=== PATIENT | female | born 1985 | race Caucasian/White ===

== ENCOUNTER 2017-03-29 12:42 | Inpatient (IN) | payer OTHER ==
[~2017-03-29] VITALS: Ht 167.6 cm; Wt 61.9 kg
[2017-03-29 12:49] VITALS: BP 125/83; PULSE 85; RESP 16; O2SAT 100
--- NOTE | 2017-03-29 15:38 | ED.REPORT ---
HPI-Headache Date of Service March 29, 2017 ED Provider: Dr. Hodgson 31 y/o female with no pertinent hx presents to the ED complaining of severe headache, onset 5 days ago which significantly worsened 2 days ago. The pt had been to [facility] in [place] 2 days ago. She was discharged as the blood work was unremarkable. She went back to [facility] this morning, where they discharged her due to an unremarkable MRI. There was no sign of stroke or masses or dural sinus thrombosis. She presented here immediately after being discharged from [facility]. The pt reports until today her headache was mostly on the left side but now it also hurts on the right side of her head. Associated sx include nausea, vomiting, and photophobia. She denies fever and chills. The pt reports she used to get tension headaches as a teenager but she has not had a migraine since. She takes magnesium supplements. Her HIGH PRESSURE OPERATOR shows no narcotics. Nursing Notes Stated Complaint: HEAD PAIN,VOMITING,CAN'T KEEP FOOD/LIQUID DOWN Chief Complaint: Headache Nursing Notes Reviewed: Yes Allergies: Coded Allergies: NSAIDS (Non-Steroidal Anti-Inflamma (Verified Allergy, Unknown, Stomach bleeding, 03/29/17) aspirin (Verified Allergy, Unknown, Stomach bleeding, 03/29/17) metoclopramide (Verified Allergy, Unknown, Nausea,Vomiting, 03/29/17) morphine (Verified Allergy, Unknown, Nausea,Vomiting, itching, hives, 03/29) ondansetron (Verified Allergy, Unknown, Hives, 03/29/17) prochlorperazine (Verified Allergy, Unknown, dystonic reaction, 03/29/17) General Time Seen by MD: 15:38 Chief Complaint Headache Hx Obtained From: Patient Arrived By: Walk-in Sudden in Onset?: No Onset Occurred: 5 days ago Symptom Duration: Since onset Location: : Generalized Quality: Painful Radiation: : Does not radiate Severity: Current: Moderate Severity: Maximum: Severe Recent Healthcare: Recent doctor visit Similar Sx Previous: Yes Past Medical History Past Medical History PTSD Past Surgical History none reported Smoking History Never Smoker Social History Alcohol Use: Denies alcohol use Drug Use: Denies drug use Ambulatory Status Independent Review of Systems Review of Systems Note: Recent travel to [place] as well as [place]. No travel to [place] and countries. Constitutional: Denies: Chills, Fever GI: Reports: Nausea, Vomiting Neurologic: Reports: Headache Complete sys rev & neg: except as marked. Physical Exam Initial Vital Signs Vital Signs (First) Date Time Temp Pulse Resp B/P Pulse Ox O2 Delivery O2 Flow Rate FiO2 03/29/17 12:49 37.3 85 16 125/83 100 Room Air Initial VS: Reviewed ENT: Mucous membranes moist, Conjunctiva normal (no injections pupils equal minimal photophobia), No scleral icterus Respiratory: Breath sounds normal, Clear to auscultation, No respiratory distress Cardiovascular: Regular rate & rhythm, Heart sounds normal, Intact distal pulses Abdomen / GI: Soft (minor tenderness left flank and with significant forward flexion in the lumbar area), No guarding, No rebound, No distention Lymphatic: No lymphadenopathy Extremities: Vascular intact, Neuro intact, No swelling, No tenderness Skin: Warm, Dry, No cyanosis Psychiatric: Mood/affect normal, Behavior normal, Normal thought content General/Constitutional: Awake (significant distress nauseated and retching holding her head from pain, remains cooperative) Cardiovascular: Heart rate NL, Regular rhythm, Heart sounds NL, Peripheral circulation NL Interpretation & Diagnostics Interpretation & Diagnostics: CSF studies pending including viral PCR Pt's labs at [facility] on 03/27/17 were unremarkable. Pt's MRI at [facility] on 03/29/17 was also unremarkable. Lab Results Interpretation Result Diagram: 03/29/17 1635 03/29/17 1655 Test 03/29/17 16:14 03/29/17 16:35 03/29/17 16:55 03/29/17 17:55 Hold Urine Received (Received) White Blood Count 3.6th/mm3 (3.8-10.1) Red Blood Count 5.20mil/mm3 (3.90-5.20) Hemoglobin 12.1g/dL (12.0-15.6) Hematocrit 38.2% (35.0-46.0) Mean Corpuscular Volume 73.5fL (81-100) Mean Corpuscular Hemoglobin 23.3pg (27.0-35.0) Mean Corpuscular Hemoglobin Concent 31.7% (32.0-37.0) Red Cell Distribution Width 17.8% (12.3-15.4) Platelet Count 251bil/L (150-400) Neutrophils (%) (Auto) 38.7% (40-74) Lymphocytes (%) (Auto) 50.4% (14-46) Monocytes (%) (Auto) 8.7% (4-12) Eosinophils (%) (Auto) 1.4% (0-5) Basophils (%) (Auto) 0.8% (0-3) Hold Purple Top Tube Received (Received) Sodium Level 138mEq/L (134-144) Potassium Level 3.9mEq/L (3.5-5.2) Chloride Level 102mEq/L (97-108) Carbon Dioxide Level 21mmol/L (18-29) Blood Urea Nitrogen 6mg/dL (6-20) Creatinine 0.67mg/dL (0.57-1.00) Estimat Glomerular Filtration Rate 146mL/min (>59) Glucose Level 79mg/dL (60-99) Calcium Level 8.9mg/dL (8.5-10.1) Magnesium Level 2.0mg/dL (1.6-2.6) Total Bilirubin 0.3mg/dL (0.0-1.2) Aspartate Amino Transf (AST/SGOT) 14U/L (0-50) Alanine Aminotransferase (ALT/SGPT) 6U/L (0-32) Alkaline Phosphatase 47U/L (25-150) Total Protein 7.4g/dL (6.4-8.4) Albumin 3.9g/dL (3.4-5.0) Lipase 39U/L (13-60) Hold Mckeon Top Tube Received (Received) Procedures Lumbar Puncture Time: 17:45 Procedure Performed by: ED physician Consent / Setup / Site Prep: Informed consent provided, Consent from patient , Time-out performed, Hand hygiene observed, Stand sterile technique, Patient left lateral Skin Preparation Agent: Betadine Local Anesthesia: Lidocaine 1% Inserted Needle at: L3 L4 Post-Procedure / Complications: Dressing applied, No complications, Tolerated procedure well, Patient stable Re-Eval/Medical Decision Med Decision/Clinical Course 1-year-old woman with mild headache for 2 days then awaking on Sunday (3 days ago) with severe headache that has persisted. She was seen initially at [facility] with normal lab work sent home after fluids and pain medication. Return to days later continued to complain of severe pain had an MRI this morning at [facility] that showed no acute findings including no dural sinus thrombosis. Presents to [facility] with continued complaints of head pain so severe she is having trouble walking. She does not typically have headaches. She has no history of narcotic use or abuse. Her HIGH PRESSURE OPERATOR is reviewed she has had no narcotic prescriptions. Physical exam reveals severe headache with minor both normal call and lumbar tenderness with manipulation of her head. Her white count is actually lower. Lumbar puncture was done revealing clear fluid. Sent for viral PCR as well as usual CSF studies currently pending at this point. Given the continued severe headache and otherwise healthy young woman suspects viral meningitis. With 3 ER visits now in less than 24 hours lot to admit her at this point for intractable headache and presumptive viral meningitis with CSF cultures pending. No evidence of bacterial meningitis or other infectious disease that would require isolation. Re-Evaluation/Progress #1: Time of Eval: 15:56 Re-Evaluation/Progress Note: Rechecked pt. Informed the pt a lumbar puncture will be done. Re-Evaluation/Progress #2: Time of Eval: 17:39 Re-Evaluation/Progress Note: Rechecked pt. Lumbar puncture performed. Pt states her pain level is about 7/10 and she prefers to stay in the hopital. Informed th pt the hospitalist will be contacted in case she needs to be admitted. Consultation : Consulted With: Gas Station Service Attendant Call Returned at: 18:25 Metal Mockup Maker: Agrees with eval, Agrees with plan, Accepts admit Note: Dr Wade Counseled Regarding: Diagnosis, Lab results Discharge & Departure Impression: Primary Impression: Viral meningitis Additional Impressions: Intractable headache Leukopenia Disposition: ADMITTED TO HOSPITAL Discharge Condition All VS Reviewed: Yes Referrals: NOPCP (PCP) Scribe Attestation Portions of this note were transcribed by Ericka Uriarte. I, , personally performed the history, physical exam and medical decision-making;I reviewed and confirmed the accuracy of the information in the transcribed note. Signed by Yahir Khan. 03/29/17 1801 Adali Hodgson MD March 29, 2017 15:38 Ericka Uriarte March 29, 2017 15:56
[2017-03-29] MEDS ORDERED: 0.9% Sodium Chloride 1,000 ML IV ONE (16:04)
[2017-03-29] MEDS ORDERED: HYDROmorphone 1 mg/mL Inj IVPUSH PRN (16:05)
[2017-03-29] MEDS ORDERED: HYDROmorphone 1 mg/mL Inj IVPUSH ONE (16:05)
[2017-03-29] MEDS ORDERED: Promethazine Inj 50 MG in 0.9% Sodium Chloride-Pha MIX 100 ML IV ONE (16:05)
[2017-03-29 16:44] LABS: BASOPHILS % (AUTO) 0.8 % (0-3); EOSINOPHILS % (AUTO) 1.4 % (0-5); MONOCYTES % (AUTO) 8.7 % (4-12); Mean Corpuscular Hemoglobin 23.3 pg (27.0-35.0); Mean Corpuscular Volume 73.5 fL (81-100); NEUTROPHILS % (AUTO) 38.7 % (40-74); Platelet Count 251 bil/L (150-400)
[2017-03-29] MEDS ORDERED: fentaNYL-PF 50 mCg/mL 2 mL Inj IVPUSH ONE (18:10)
[2017-03-29] MEDS: fentaNYL-PF 50 mCg/mL 2 mL Inj IVPUSH ONE ×2 (18:10→18:23)
[2017-03-29 18:33] VITALS: BP 118/80; PULSE 70; O2SAT 100
[2017-03-29 18:40] LABS: APPEARANCE,CSF CLEAR (CLEAR); COLOR,CSF COLORLESS (COLORLESS); WHITE BLOOD CELL,CSF 0 /mm3 (0-5)
[2017-03-29 18:41] LABS: APPEARANCE,CSF CLEAR (CLEAR); COLOR,CSF COLORLESS (COLORLESS); WHITE BLOOD CELL,CSF 0 /mm3 (0-5)
[2017-03-29] MEDS ORDERED: 0.9% Sodium Chloride 1,000 ML IV SCH (18:44)
[2017-03-29] MEDS ORDERED: Alum-Mag Hydrox-Simeth 30 mL Suspension PO PRN ×2 (18:45→20:15)
[2017-03-29] MEDS ORDERED: PROM25SU47 RECTAL (18:57)
[2017-03-29] MEDS ORDERED: AMPH30CA5 PO (18:57)
[2017-03-29] MEDS ORDERED: PANT40TA3 PO (18:57)
[2017-03-29] MEDS ORDERED: MAGN500C4 PO (18:57)
[2017-03-29] MEDS ORDERED: FAMO20TA4 PO (18:57)
[2017-03-29] MEDS ORDERED: ACET-171 PO (18:57)
[2017-03-29] MEDS ORDERED: KLO1T PO (18:57)
[2017-03-29] MEDS ORDERED: ZOLP5TAB6 PO (18:57)
[2017-03-29] MEDS ORDERED: Promethazine 25 mg Rectal Suppository RECTAL PRN (20:15)
[2017-03-29] MEDS ORDERED: Naloxone 0.4 mg/mL 10 mL Inj IVPUSH PRN (20:15)
[2017-03-29] MEDS ORDERED: Magnesium Sulfate 50% Inj 1 GM in Dextrose 5% 50 ML IV PRN (20:15)
[2017-03-29] MEDS ORDERED: Promethazine 50 mg/mL Inj IV PRN (20:20)
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
--- NOTE | 2017-03-29 20:29 | PCM.CONPHA ---
Subjective Date of Service: March 29, 2017 Requesting Provider: Srikanth Martell DO Reason for Pharmacy Consult: Anticoagulation Management Objective Vital Signs Date Time Temp Pulse Resp B/P Pulse Ox O2 Delivery O2 Flow Rate FiO2 03/29/17 18:33 70 118/80 100 03/29/17 12:49 37.3 85 16 125/83 100 Room Air Weight (Kilograms): 63.64 Height (Feet): 5 Height (Inches): 6 Test 03/29/17 16:14 03/29/17 16:35 03/29/17 16:55 03/29/17 17:55 Hold Urine Received (Received) White Blood Count 3.6th/mm3 (3.8-10.1) Red Blood Count 5.20mil/mm3 (3.90-5.20) Hemoglobin 12.1g/dL (12.0-15.6) Hematocrit 38.2% (35.0-46.0) Mean Corpuscular Volume 73.5fL (81-100) Mean Corpuscular Hemoglobin 23.3pg (27.0-35.0) Mean Corpuscular Hemoglobin Concent 31.7% (32.0-37.0) Red Cell Distribution Width 17.8% (12.3-15.4) Platelet Count 251bil/L (150-400) Neutrophils (%) (Auto) 38.7% (40-74) Lymphocytes (%) (Auto) 50.4% (14-46) Monocytes (%) (Auto) 8.7% (4-12) Eosinophils (%) (Auto) 1.4% (0-5) Basophils (%) (Auto) 0.8% (0-3) Hold Purple Top Tube Received (Received) Sodium Level 138mEq/L (134-144) Potassium Level 3.9mEq/L (3.5-5.2) Chloride Level 102mEq/L (97-108) Carbon Dioxide Level 21mmol/L (18-29) Blood Urea Nitrogen 6mg/dL (6-20) Creatinine 0.67mg/dL (0.57-1.00) Estimat Glomerular Filtration Rate 146mL/min (>59) Glucose Level 79mg/dL (60-99) Calcium Level 8.9mg/dL (8.5-10.1) Magnesium Level 2.0mg/dL (1.6-2.6) Total Bilirubin 0.3mg/dL (0.0-1.2) Aspartate Amino Transf (AST/SGOT) 14U/L (0-50) Alanine Aminotransferase (ALT/SGPT) 6U/L (0-32) Alkaline Phosphatase 47U/L (25-150) Total Protein 7.4g/dL (6.4-8.4) Albumin 3.9g/dL (3.4-5.0) Lipase 39U/L (13-60) Hold Mckeon Top Tube Received (Received) CSF Appearance Clear (CLEAR) CSF Color Colorless (COLORLESS) CSF WBC 0/mm3 (0-5) CSF RBC 0/mm3 CSF Mononuclear WBCs % CSF Polynuclear WBCs % CSF Other Cells CSF Glucose 50mg/dL (45-90) CSF Total Protein 19mg/dL (15-45) Assessment/Plan Assessment/Plan Lovenox per Rx Indication: DVT prophylactic SCR eCrCl >120 Dose 40mg daily, per protocol Carter Box PharmD March 29, 2017 20:29
[2017-03-29] MEDS: HYDROmorphone 1 mg/mL Inj IVPUSH PRN (20:45)
[2017-03-29] MEDS ORDERED: OXYC-407 PO (20:57)
[2017-03-29 21:16] VITALS: BP 118/80; PULSE 70; RESP 16; O2SAT 100
[2017-03-29 21:26] VITALS: BP 112/76; PULSE 64; RESP 16; O2SAT 100
[2017-03-29] MEDS: 0.9% Sodium Chloride 1,000 ML IV SCH (21:38)
[2017-03-29] MEDS: Promethazine Inj 25 MG in 0.9% Sodium Chloride 50 ML IV PRN (21:54)
[2017-03-30] MEDS ORDERED: fentaNYL-PF 50 mCg/mL 2 mL Inj IVPUSH ONE (00:10)
[2017-03-30] MEDS: Sodium Chloride LOK Flush 10 mL Syringe IVFLUSH SCH ×3 (00:14→16:30)
--- NOTE | 2017-03-30 01:50 | NUR ---
Admission Pt arrived to room 3031 alert and oriented but drowsy, c/o 10/10 head ache. Pt was oriented to room, call light, bed and policies. ED RN informed me that Pt had just received a dose of fentanyl prior to departing the the ED. She also informed this RN that the emergency physician had ordered another dose for Pt if she needed it later after arriving to floor. Pt also c/o nausea and vomiting. Pt was given IF phenergan for nausea with no reliefe of symptoms. Pt drowsy and falling asleep during initial assessment and admission questions. Pt placed on continuous pulse oximetry monitor for safety and is currently at this time holding a SpO2 of 100% on RA. Pt is currently asleep.
[2017-03-30 06:27] LABS: BASOPHILS % (AUTO) 0.3 % (0-3); EOSINOPHILS % (AUTO) 0 % (0-5); MONOCYTES % (AUTO) 2.6 % (4-12); Mean Corpuscular Hemoglobin 23.4 pg (27.0-35.0); Mean Corpuscular Volume 74.7 fL (81-100); NEUTROPHILS % (AUTO) 78.2 % (40-74); Platelet Count 234 bil/L (150-400)
[2017-03-30 06:34] VITALS: BP 114/72; PULSE 75; RESP 16; O2SAT 97
[2017-03-30] MEDS: HYDROmorphone 1 mg/mL Inj IVPUSH PRN ×2 (06:37→12:53)
[2017-03-30] MEDS: 0.9% Sodium Chloride 1,000 ML IV SCH ×2 (06:45→16:11)
[2017-03-30 06:54] LABS: Magnesium 1.8 mg/dL (1.6-2.6); Phosphorus 2.7 mg/dL (2.5-4.9)
[2017-03-30] MEDS: Promethazine Inj 25 MG in 0.9% Sodium Chloride 50 ML IV PRN (07:57)
--- NOTE | 2017-03-30 08:52 | NUR ---
Social Work: Screening Data: Pt is a 31 y/o female admitted for viral meningitis. Pt's PCP is not listed, pt's insurance is [employer]. EMR reviewed. No d/c planning needs anticipated at this time. PROFESSOR OF GENETICS will continue to follow if needs arise. Assessment: Pt who is independent at baseline. Plan: Pt will d/c home when medically stable. No d/c planning needs anticipated at this time. PROFESSOR OF GENETICS will continue to follow if needs arise. KATIE Stephens
[2017-03-30] MEDS: Polyethylene Glycol (PEG) 17 Gm Powder PO PRN (09:24)
[2017-03-30 13:23] VITALS: BP 109/63; PULSE 86; RESP 16; O2SAT 95
[2017-03-30] MEDS: PROMETHAZINE IV PRN (13:39)
[2017-03-30] MEDS: SODIUM CHLORIDE 0.9% IV PRN (13:39)
[2017-03-30] MEDS: Amphetamines (Mixed) 10 mg Tablet PO SCH (13:41)
[2017-03-30 14:56] VITALS: O2SAT 99
[2017-03-30] MEDS ORDERED: Dexamethasone Inj 10 MG in 0.9% Sodium Chloride-Pha MIX 50 ML IV ONE (15:30)
[2017-03-30] MEDS: Pantoprazole 40 mg ER24 Tablet PO SCH (15:34)
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
--- NOTE | 2017-03-30 16:10 | NUR ---
Pain and behaviors Continues to request Fentanyl or increased dose of Dilaudid IV. Informed patient that MD is choosing not to agree with those orders. Continues to have 10/10 SIEGEL. Patient found to be sleeping majority of shift. Attempted to educate patient in regards to pain scale. Patient now states that after dose of IV Dilaudid is 8/10. C/o of nausea yet no emesis. States she can only lay flat on her back. Elevation increases pain. Continue frequent rounding.
[2017-03-30 19:55] VITALS: BP 117/75; PULSE 78; RESP 16; O2SAT 97
--- NOTE | 2017-03-30 20:07 | NUR ---
Pain/Nausea/Emesis Pt found crying, lying flat in her bed with an ice dexter on her head. She states repeatedly, "The nurse didn't come with my pain medicine at six fifteen tonight." The pt has a headache that "hurts all over". She then states, "my IV hurts". Her IV has infiltrated. The pt then cries harder because she won't be able to have her IV medicine immediately. She refuses PO dilaudid. She has a small amt of emesis in her basin. When I returned with the bandaid she had a large amt of non digested food in her basin. IV therapy called. Given new ice dexter. Pt assured that her IV medications would be administered as soon as a new IV is placed. Pt appears calmer.
--- NOTE | 2017-03-30 21:38 | NUR ---
Emesis x 2 Pt has two more emesis of undigested food and dark brown fluid. Pt states, "I'm throwing up blood." I told her that a test could be done to decipher if this was blood or not, but that the MD would have to order this test. The pt refuses sublingual or rectal options of possible anti emetic medication. I explained to the pt that a second nurse has been notified to possibly place a peripheral IV> The pt requests a central line. I told her this was not possible at this time. The verbalized understanding.
[2017-03-31 00:04] VITALS: BP 118/77; PULSE 90; RESP 20; O2SAT 96
--- NOTE | 2017-03-31 00:06 | NUR ---
Pain/IV Pt states her SIEGEL has remained a 10. She requests a fentanyl pain "patch". She states the IV fentanyl "worked". VS stable. Pt refuses to sit up. She states her SIEGEL goes to a 20. (She was able to walk to the bathroom earlier this evening at 2100) Notified MD of this request. MD to keep patient on current pain regimen. IV nurse, Aj, to attempt pt's PIV soon. Pt updated on care plan.
[2017-03-31] MEDS: 0.9% Sodium Chloride 1,000 ML IV SCH ×3 (00:58→23:02)
[2017-03-31] MEDS: PROMETHAZINE IV PRN ×2 (00:58→05:36)
[2017-03-31] MEDS: Sodium Chloride LOK Flush 10 mL Syringe IVFLUSH SCH ×4 (00:58→23:03)
[2017-03-31] MEDS: SODIUM CHLORIDE 0.9% IV PRN ×2 (00:58→05:36)
[2017-03-31] MEDS: HYDROmorphone 1 mg/mL Inj IVPUSH PRN ×6 (00:58→22:01)
--- NOTE | 2017-03-31 03:57 | NUR ---
Activity Pt insists that she will be "OK" on her own back and forth to to bathroom. I explained that it is the nurse's responsibility to ensure safety when pt's are up OOB especially when I have not seen her sit up on her own. The pt then got up OOB independently and then crept to the bathroom keeping her head at the same level as her waist in order to prevent pain. She insisted I shut the door for privacy. The pt requested normal saline for her contacts and then stated she'd be "fine" getting back to bed on her own without help. This RN remains at the bedside awaiting the pt to return from the bathroom.
--- NOTE | 2017-03-31 04:02 | NUR ---
Pain medicine The pt wants her pain medicine switched. "If I take the dilaudid without the benadryl my throat may close off" I then told her to wait till 0700 when the benadryl is due so that she may have the two medications together. The pt replied "That will prolong my suffering". I responded that if she was going to have a panic attack if dilaudid was given without benadryl then it wasn't worth taking the medication. The pt disagreed. She is very focused that the dilaudid gave her "hives" and keeps referring to the photo images she has of the hives. She had no such reaction when I administered the dilaudid with the benadryl at 0100.
[2017-03-31 05:33] VITALS: BP 110/68; PULSE 73; RESP 20; O2SAT 97
--- NOTE | 2017-03-31 07:13 | NUR ---
Diet Pt ate two pieces of toast. She kept this down. She is requesting breakfast. I encouraged her to keep snacking.
[2017-03-31] MEDS: Pantoprazole 40 mg ER24 Tablet PO SCH (07:55)
[2017-03-31] MEDS: Amphetamines (Mixed) 10 mg Tablet PO SCH ×2 (08:30→15:00)
[2017-03-31 09:04] VITALS: BP 122/81; PULSE 67; RESP 18; O2SAT 96
--- NOTE | 2017-03-31 10:26 | NUR ---
Pain Pt requested pain medication. C/o SIEGEL. Confirmed with MD to continue use of IV Dilaudid. Approached patient's room with IV medication to give patient and patient found to be in deep sleep AEB light snoring, mouth open, eyes closed, etc.... As RN attempted to quietly exit room patient woke up and requested pain med stating that she was in "excruciating and crippling pain". IV Dilaudid given. Educated patient on uses of IV Tylenol and effectiveness with SIEGEL's. Patient states that she will "think about it". Addendum: 03/31/17 at 1031 by TONY SPENCER RN No emesis this far in shift. Patient did eat her breakfast.
--- NOTE | 2017-03-31 10:32 | NUR ---
Refusal of meds Patient refused Adderall and magnesium. Did accept her Protonix and and Pepcid.
[2017-03-31] MEDS: Acetaminophen IV 1,000 MG in IV Premix 1 EACH IV PRN ×2 (11:36→22:01)
--- NOTE | 2017-03-31 14:26 | NUR ---
Social Work: Continued d/c planning Data: DISBURSEMENT CLERK requested LIZZY report from LIZZY [facility]IL[facility]. Pt has visited 12 Emergency Departments along the [facility] since September of 2016. DISBURSEMENT CLERK gave this information to KATIE Ruiz
[2017-03-31 14:32] VITALS: BP 129/77; PULSE 61; RESP 18; O2SAT 90
--- NOTE | 2017-03-31 15:43 | NUR ---
Pain/Nausea Continues to c/o SIEGEL which pain describes between 7-9 on pain scale. Patient states SIEGEL of 7/10 on pain scale and this RN gave Dilaudid 1mg IV. After reassessment pt states pain is now 9/10 yet she continues to sit up in bed at 30 degrees and eating lunch. Continues to request nausea meds yet ate breakfast, lunch and snacks. No report of emesis or c/o nausea. Patient just states "i want phenergan" without any report of nausea. Offered PO and IV magnesium and patient declined.
--- NOTE | 2017-03-31 16:10 | NUR ---
[facility] prescription monitoring information provided to Dr Montes.
--- NOTE | 2017-03-31 16:53 | NUR ---
Pt Rounds hourly shift manager in room during physician rounds this afternoon. Throughout rounds, pt appeared comfortable, speaking in a calm voice, smiling, asking questions, no obvious distress noted. Pt reported having increased levels of pain whenever raising her head; however, was able to lift head and upper body to retrieve items from her purse without any objective or verbal s/s pain. Also note pt was able to sit upright while showering today w/o reporting increased pain. Plan and medications discussed in detail w/ physician multiple times. Pt verbalizes understanding of plan.
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
[2017-03-31] MEDS: Polyethylene Glycol (PEG) 17 Gm Powder PO PRN (20:03)
[2017-03-31 21:27] VITALS: BP 138/84; PULSE 71; RESP 16; O2SAT 100
[2017-04-01] MEDS: HYDROmorphone 1 mg/mL Inj IVPUSH PRN ×3 (01:59→12:51)
[2017-04-01 05:35] VITALS: BP 113/63; PULSE 68; RESP 16; O2SAT 98
--- NOTE | 2017-04-01 06:00 | NUR ---
Pain/Nausea Pt reporting headache and back pain 10/10, also stating nausea. Pt laying flat in bed, stating she can not sit up or the pain increases to 20. Medicated pt with 1 mg IV dilaudid, IV tylenol and PO phenergan. Pt's dinner at bedside, pt stating still wanting to eat. Pt stating pain decreased to 7/10 after medication admin, talking to her brother on the phone. No vomiting this shift. Medicated pt at 0200 for headache and back pain 10/10, medicated with benadryl at this time as well. Pt came out of room about an hour later, had disconnected herself from her IV. Pt was unsteady on her feet, stating she spilled her water on herself. Cleaned pt up, got her a new gown, pt then laid down in bed with eyes closed. No further c/o nausea or pain this shift, call light within reach, bed alarm for safety.
[2017-04-01] MEDS: Pantoprazole 40 mg ER24 Tablet PO SCH (08:10)
[2017-04-01] MEDS: 0.9% Sodium Chloride 1,000 ML IV SCH ×2 (08:11→12:29)
[2017-04-01] MEDS: Sodium Chloride LOK Flush 10 mL Syringe IVFLUSH SCH ×3 (08:21→21:38)
[2017-04-01] MEDS: Acetaminophen IV 1,000 MG in IV Premix 1 EACH IV PRN (10:01)
[2017-04-01] MEDS: Amphetamines (Mixed) 10 mg Tablet PO SCH (10:02)
[2017-04-01 13:45] VITALS: BP 144/97; PULSE 65; RESP 16; O2SAT 97
--- NOTE | 2017-04-01 14:27 | NUR ---
OFF UNIT Patient off to radiology at 1420 via bed. Addendum: 04/01/17 at 1524 by ANJELICA ALFARO RN Pt back on unit, IVF restarted
--- NOTE | 2017-04-01 14:30 | NUR ---
PAIN/NAUSEA Physician spoke with patient about transitioning from IV to PO pain medications. Offered PO pain medication x2 reinforcing physician's plan. Patient continued to request IV pain medication stating PO hasn't worked and she's not ready to transition, she continues to state she will try PO pain medications on the next scheduled dose. Will continue to emphasize the need to transition to PO medications. Patient also requesting bed be unplugged because mattress inflating causes increased pain. Primary RN spoke to charge nurse regarding this request and allowed bed to be unplugged. Patient gets up to bathroom walking with forward antalgic gait. She continues to use ice pack and heat pack to help alleviate pain. Will continue to monitor. Addendum: 04/01/17 at 1524 by ANJELICA ALFARO RN This RN agrees with above
--- NOTE | 2017-04-01 16:15 | DRSVH ---
PROCEDURE: MRI STROKE PROTOCOL ([id number]) Pre- and post-contrast brain MRI, non-contrast brain MR angiogram, pre- and postcontrast neck MR emmanuel ogram INDICATIONS: severe head ache TECHNIQUE: Brain: Noncontrast axial T1 spin echo, axial T2 fast spin echo, sagittal and axial FLAIR, coronal T2 fast spin echo, axial gradient echo, axial diffusion and ADC through the brain. After the administr ation of contrast, axial 3D VIBE of the cranial vasculature and brain. Brain MRA: Non-contrast 3-D time of flight MR angiogram, with multiple axxljou-qgakwhykt-forrtintjv (MIP) reformats performed. Neck MRA: Axial and sagittal TruFISP through the neck. Coronal dynamic MR angiogram during administ ration of contrast in the arterial and venous phases, with 3-dimenstional empilhd-vwbsndpyp-zceptaark n (MIP) reformats constructed from subtraction images. COMPARISON: None. FINDINGS: Image quality: Excellent. BRAIN: CSF spaces: Ventricles are normal in size and shape. Basal cisterns are patent. No extra-axial flu id collections. Brain: No intracranial bleeds or mass effects. Dejesus-white matter interface is normal. Diffusion we ighted images show no acute ischemic insults. Brainstem appears normal. Normal intravascular flow v oids are present. No abnormal intracranial enhancement. Skull and face: Calvarial marrow signal is normal. Orbits appear normal. Sinuses: There is a fluid collections in mucosal thickening of the right maxillary sinus. The mastoid s are clear. BRAIN MR ANGIOGRAM: Anterior circulation: Intracranial internal carotid arteries are normal in size and enhancement. Th e flow within the paired anterior cerebral arteries is normal and symmetric. The flow within the mid dle cerebral arteries is normal and symmetric. The anterior communicating artery is seen. No stenos es, occlusions, or aneurysms. Posterior circulation: The visualized portions of the vertebral arteries demonstrate normal caliber, and join to form a normal appearing basilar artery. The flow within the posterior cerebral arteries is normal and symmetric. No stenoses, occlusions, or aneurysms. NECK MR ANGIOGRAM: Carotids: There is a common trunk for the left common carotid artery and the innominate artery. Grea t vessels demonstrate a caliber as they arise from the aortic arch. The origins of the common caroti d arteries appear patent. The calibers and courses of both common carotid arteries are normal. The bifurcation regions appear normal bilaterally. The internal carotid arteries demonstrate normal cour se and caliber. Posterior circulation: The origins of the vertebral arteries appear patent. More superior portions of both vertebral arteries demonstrate normal course and caliber, and join to form a normal appearing basilar artery. Miscellaneous: Subclavian arteries appear patent. Pre-contrast images through the neck show no soft tissue abnormalities. There is a small left pleural effusion. IMPRESSION: BRAIN MRI: 1. No acute intracranial abnormalities. 2. Maxillary sinusitis. BRAIN MR ANGIOGRAM: Normal anterior and posterior circulations. NECK MR ANGIOGRAM: 1. Normal cervical carotid arteries and vertebral arteries bilaterally. 2. Small left pleural effusion. The estimate of stenosis included in the report of the imaging study was calculated using the NASCET method Dictated by: Camilla Zapata M.D. on 04/01/2017 at 16:05 Approved by: Camilla Zapata M.D. on 04/01/2017 at 16:14
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
[2017-04-01] MEDS ORDERED: HYDROmorphone 1 mg/mL Inj IVPUSH PRN (17:10)
[2017-04-01] MEDS ORDERED: HYDROmorphone 1 mg/mL Inj IVPUSH ONE (17:15)
--- NOTE | 2017-04-01 18:32 | NUR ---
Pain Upon return to floor from MRI, pt reporting "severe, debilitating pain". This was communicated to this RN with a flat, monotone affect. Pt states she is unable to elevate head "for any reason" so has remained flat for entirety of shift with exception of BR use at which time she will amb, bent at the waist. Pt has been picking at meals throughout this shift, c/o a vague nausea. No retching or gagging noted. Pt appears to attempt to keep staff in room, requesting pillow/ice pack adjustment, information about LP, information about blood patch, asking numerous times re: timing of medications, wanting to discuss recent trip to [place] and often calling for staff when door has shut. All needs met. Bed in lowest, locked position, call light in reach.
[2017-04-01 21:09] VITALS: BP 111/65; PULSE 69; RESP 18; O2SAT 97
[2017-04-01] MEDS: Amoxicillin-Clav 875-125 mg Tablet PO SCH (21:37)
[2017-04-02] MEDS: 0.9% Sodium Chloride 1,000 ML IV SCH ×3 (02:55→14:11)
[2017-04-02 05:24] VITALS: BP 105/68; PULSE 64; RESP 16; O2SAT 97
--- NOTE | 2017-04-02 06:08 | NUR ---
Pain: Pt c/o SIEGEL 07/29, medication administered; effective, allowing pt to sleep, appeared comfortable. No c/o nausea or diarrhea. Pt slept most of the night, pleasant and cooperative with care.
[2017-04-02] MEDS: Sodium Chloride LOK Flush 10 mL Syringe IVFLUSH SCH ×2 (08:30→16:33)
[2017-04-02] MEDS: Pantoprazole 40 mg ER24 Tablet PO SCH (10:09)
[2017-04-02] MEDS: Amoxicillin-Clav 875-125 mg Tablet PO SCH ×2 (10:10→21:37)
[2017-04-02] MEDS: Amphetamines (Mixed) 10 mg Tablet PO SCH (10:15)
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
[2017-04-02 14:11] VITALS: BP 145/100; PULSE 68; RESP 16; O2SAT 99
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
--- NOTE | 2017-04-02 18:30 | NUR ---
Pain Patient reporting pain 9-10/10 this morning and early afternoon. Mom visiting late afternoon, at which time, patient reporting pain 8/10, pain medications given, mom left, pain reassessment patient texting on phone, in the dark, reported pain 9-10/10.
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
[2017-04-02 20:43] VITALS: BP 129/87; PULSE 70; RESP 16; O2SAT 100
[2017-04-02] MEDS ORDERED: Sodium Chloride NAS 45 mL Spray NASAL PRN (22:05)
[2017-04-02] MEDS ORDERED: Fluticasone 0.05% 15 Spray/2 Gm 16 Gm Nasal Spray NASAL PRN (22:05)
[2017-04-03] MEDS: Sodium Chloride LOK Flush 10 mL Syringe IVFLUSH SCH ×3 (00:18→17:20)
[2017-04-03] MEDS: Polyethylene Glycol (PEG) 17 Gm Powder PO PRN ×2 (00:19→08:47)
--- NOTE | 2017-04-03 00:32 | CONS ---
[address] [address] CONSULTATION REPORT PATIENT: MAYRA CORRAL : 1985 MR#: [id number] ADMIT: 03/29/2017 JOB ID: [id number] DATE OF SERVICE: BRIEF HISTORY OF PRESENT ILLNESS: The patient is a 31-year-old female who was recently admitted for headaches and concern for meningitis. On March 29, she underwent a lumbar puncture to rule out meningitis as part of the workup. She was noted to have a change in her quality of headaches. She has a complicated past medical history which was nicely outlined in Dr. Rocha's note. Please refer to her excellent note for further details and background of her clinical picture. I was asked to evaluate the patient for possible postdural puncture headache status post lumbar puncture. I would like preface this note with the fact that our conversation was very pleasant and I found the patient to be highly intelligent. The details regarding her symptoms and recent turn of events were a bit elusive and hard to clarify. She does, however, seem genuinely distraught and hopeless with regard to her headaches. I spent nearly an hour in consultation with her. Regarding her quality of headache, the clinical picture and timeline are consistent with a postdural puncture headache. The headache does get worse when sitting and better when she is lying flat although does not get less than 4/10. She has had nausea and vomiting in the two days following the procedure. She noted the symptoms started a couple hours after the lumbar puncture, in which her headache went from unilateral to bilateral and included back pain as well. She notes that her symptoms have not improved with conservative therapy, including caffeine and adequate hydration. My concerns related to her history and symptoms include the fact that she has not had any improvement in four days despite lying flat and she notes that her headache is persistent in the 4-6 range even while supine. Her record also shows multiple emergency department visits for subjective pains such as headaches and abdominal pain. She has had recent trauma, PTSD and significant social stressors, and history of headaches in the past of differing etiology. She has had an LP in the past as well. Another troubling concern is that she has back pain with any movement but including rotational movement which is new and related to her headache according to her. This also includes occasional sciatica with flexion. Inspection of her back shows no signs of distention or hematoma and it is nontender to palpation. In fact, her physical exam of the lower extremities was grossly intact and normal. There are several inconsistencies in the details of her symptoms, but also in recent events unrelated to her headaches, which I find unusual. She has had pain medicine seeking behaviors with her current admission, which can certainly be a sign of inadequate pain control, but it is suspicious to have such severe pain as it relates to a postdural puncture headache while lying flat. The onset and change of headache occurred earlier than usual presentation of a PDPH. She also was insistent that according to the [facility] web site that back pain is a component of postdural puncture headaches, which has not been my experience and struck me as unusual. We discussed the risks and benefits of a blood patch. We discussed the natural progression and resolution of a PDPH if she does in fact have one, can take several days to weeks. My suspicion is that while she could have a postdural puncture headache given the recent lumbar puncture, I think is unlikely given all the other components of her history and symptoms. She also requested sedation for the procedure as she is afraid that she may not tolerate the pain, which leads me to believe the risks of the procedure are not insignificant for her, especially given that I am uncertain of her diagnosis. I could not answer her question on why her back hurts as much as it does, and a blood patch may worsen her back pain. Given that I was unable to speak to her until 9 p.m. any intervention at this hour would not provide any additional relief since she will be supine overnight. I will, however, talk to the anesthesiologist mid level practitioner tomorrow to assess her in the daytime hours for a second opinion. At this point, I recommended another day of conservative therapy for the natural progression and self resolution of a postdural puncture headache and clarification of her clinical picture. HARPREET
[2017-04-03 05:49] VITALS: BP 119/79; PULSE 67; RESP 16; O2SAT 98
--- NOTE | 2017-04-03 05:52 | NUR ---
pain Pt was tearful about her pain medication regimen tonight. Oxycodone given with Tramadol for breakthrough pain. Pt is able to sleep intermittently; sometimes unable to hold attention when RN in the room but asks for pain, nausea med, or benadryl as soon as she wakes up. Pt slept in the couch bed to help with her back pain. hourly rounding done.
[2017-04-03] MEDS: Pantoprazole 40 mg ER24 Tablet PO SCH (08:44)
[2017-04-03] MEDS: Amoxicillin-Clav 875-125 mg Tablet PO SCH ×2 (10:18→20:23)
[2017-04-03] MEDS: Amphetamines (Mixed) 10 mg Tablet PO SCH (10:18)
[2017-04-03] MEDS ORDERED: VALPROATE SODIUM IV ONE (16:35)
[2017-04-03] MEDS ORDERED: DEXTROSE 5% IV ONE (16:35)
[2017-04-03 17:26] VITALS: BP 131/84; PULSE 81; RESP 18; O2SAT 100
--- NOTE | 2017-04-03 19:00 | NUR ---
Ambulation Ambulated into hallway in crouched posture to pass off urine specimen. This RN accepted urine cup and called primary RN to place label and send to lab.
--- NOTE | 2017-04-03 19:51 | NUR ---
Behavior Pt cooperative with care but unable to maintain consistent pain control. Given PO Oxycodone for pain ranging from 6-10/10 pain in the head and 6-8/10 pain on back. Pt made requests for Blood patch and commented about wanting treatment elsewhere if she does not get what she wants. Pt also requested to keep IV fluids and MD informed. Pt does research on her phone about conditions and treatment options and sometimes changes her symptoms from previously such as headache when upright to lying down.
[2017-04-03 20:31] VITALS: BP 119/85; PULSE 78; RESP 18; O2SAT 99
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
--- NOTE | 2017-04-04 04:53 | NUR ---
PAIN/BEHAVIOR Patient presents with flat affect, depressed and anxious mood. Makes multiple requests for getting her medications changed to IV. Tearful and quite upset tonight that Dr. Hopson did not come see her. She called her office after hours and requested the answering service to call her. Answering service called here to inform us that she was doing this. Patient educated on use of after hours phone to MD, that it is for emergencies only and considering she is already in the hospital, it was not an emergency. She also was upset that anaesthesia did not visit. She feels sure she needs the blood patch and relates what she has read on the internet, stating that she has every symptom that would indicate she needs this and feels nervous that she will have a seizure. She received a valproic acid infusion this last evening and reminded that this will both help prevent seizure and possibly resolve the headache. Patient requests her oxycodone and phenergan. Asked to have her phenergan changed to IV, reminded that we are trying to move to PO. After she took the PO phenergan she had a small emesis of undigested food. Patient reminded that the phenergan had enough time to dissolve and that we would need to wait some time before doing IV phenergan. She stated that her "veins will close up within minutes of being off fluids," then requested that staff come in to flush her IV every 15-30 minutes. Patient informed that was not our policy and that we would monitor IV as necessary. Patient was finally able to sleep after given dose of ambien. Addendum: 04/04/17 at 0648 by JOVANY CONTRERAS RN Patient had more emesis, IV dose of phenergan given in place of PO. Continues to c/o headache. Patient did sleep most of the night as she was observed from inside the room.
[2017-04-04] MEDS: SODIUM CHLORIDE 0.9% IV PRN ×2 (06:40→22:29)
[2017-04-04] MEDS: PROMETHAZINE IV PRN ×2 (06:40→22:29)
[2017-04-04] MEDS: Sodium Chloride LOK Flush 10 mL Syringe IVFLUSH SCH ×3 (06:41→16:10)
[2017-04-04] MEDS: Pantoprazole 40 mg ER24 Tablet PO SCH (09:10)
[2017-04-04] MEDS: Amphetamines (Mixed) 10 mg Tablet PO SCH (09:11)
[2017-04-04] MEDS: Amoxicillin-Clav 875-125 mg Tablet PO SCH ×2 (09:11→20:30)
--- NOTE | 2017-04-04 15:45 | NUR ---
Evaluation completed. Please go to "Notes" then click on "Assessments and Notes" (bottom left corner of screen). Then select appropriate discipline tab on top of screen.
[2017-04-04 16:07] VITALS: BP 124/88; PULSE 101; RESP 18; O2SAT 100
--- NOTE | 2017-04-04 16:10 | NUR ---
Social Work: Brief Note Pt expressed care concerns. OUTBOUND TELEMARKETER notified Risk Management Patient Advocate. Pt stated that she is concerned about her treatment at this hospital and that the neurologist showed up once and stated they would again, but that she has not seen them again. She is upset that PT worked with her and "pushed me past the point of pain threshold that I am comfortable with to the point of tears and throwing up". Pt also expressed that she want to transfer to [facility] and is wanting to transport in a private ambulance. OUTBOUND TELEMARKETER notified MD of pt's desire. KATIE Stephens
--- NOTE | 2017-04-04 18:19 | NUR ---
Pain/Meds/Behavior Pain continues and reported in back, neck or head as well as "I'm not really feeling the wave of relief, when it kicks in, how long does it take to be absorbed. Also asking questions about what day and time IV dilauded was switched to PO and then switched to oxycodone, ect. Other questions and statements continue to be repeated and circling.
[2017-04-04 20:27] VITALS: BP 123/80; PULSE 78; RESP 18; O2SAT 99
[2017-04-04] MEDS ORDERED: DEXTROSE 5% IV ONE (21:10)
[2017-04-04] MEDS ORDERED: VALPROATE SODIUM IV ONE (21:10)
[2017-04-04] MEDS: Lidocaine Topical 5% Patch TOPICAL SCH (22:14)
[2017-04-04] MEDS ORDERED: 0.9% Sodium Chloride 250 ML ONE (22:24)
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
[2017-04-05] MEDS: Sodium Chloride LOK Flush 10 mL Syringe IVFLUSH SCH ×3 (00:12→16:40)
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
--- NOTE | 2017-04-05 03:24 | NUR ---
Pain/N/V Pt reporting pain 8/10 to head and back. Medicated pt with PO oxycodone. About an hour later pt vomited 200mL undigested food. Medicated pt with IV phenergan and placed lidocaine patch on pt's lower back. When in pt's bathroom to dump out emesis and urine, pt stating has not urinated in 2 days. Documentation showing pt has been voiding. Pt stating IV phenergan effective for nausea, then asked pt if she would like her PO antibiotic and tramadol and pt stating no, she was "so nauseous." Pt also stating the light from the window was hurting her eyes, closed the blinds per pt's request. Observed pt in room looking at phone in the dark. Will continue to assess pt for pain and nausea, call light within reach, frequent rounding.
[2017-04-05 06:29] VITALS: BP 102/67; PULSE 74; RESP 18; O2SAT 98
[2017-04-05] MEDS: Amoxicillin-Clav 875-125 mg Tablet PO SCH ×2 (08:12→20:30)
[2017-04-05] MEDS: Amphetamines (Mixed) 10 mg Tablet PO SCH (08:13)
[2017-04-05] MEDS: Pantoprazole 40 mg ER24 Tablet PO SCH (08:14)
--- NOTE | 2017-04-05 13:59 | NUR ---
Social Work: Continued d/c planning Data: Per Psych note: "The patient would likely benefit from referral to psychiatrist in the [facility] and should speak with CREAM SEPARATOR OPERATOR before discharge regarding referral. Patients with similar symptoms typically require extensive, consistent psychotherapy to improve condition." CREAM SEPARATOR OPERATOR will follow up with pt regarding interested and resources about MH resources is [facility]. Assessment: Pt who is independent at baseline. Plan: Pt will d/c home via POV when medically stable. CREAM SEPARATOR OPERATOR will follow up with pt regarding interested and resources about MH resources is [facility]. KATIE Stephens
--- NOTE | 2017-04-05 14:23 | NUR ---
Off unit CT Pt off unit via transporters on stretcher for neck CT. Addendum: 04/05/17 at 1622 by JAYA MAHONEY RN Pt now back, had MRI done as well. C/o pain, will medicate.
--- NOTE | 2017-04-05 15:32 | DRSVH ---
PROCEDURE: MRA ANGIOGRAM HEAD WITHOUT CONTRAST ([id number]) INDICATIONS: r/o venous sinus thrombosis TECHNIQUE: Sagittal T1 spin echo through the brain. Coronal 2D [id number] MR venogram, with 3-dimensional m dgopmw-qlmpzisnd-pnqqbkoqyz (MIP) reformats of the intracranial veins then performed. COMPARISON: [facility], , MR STROKE PROTOCOL, 04/01/2017, 14:22. FINDINGS: Image quality: Excellent. Veins: Sagittal, straight, transverse, and sigmoid sinuses all appear patent. Brain: Limited images through the brain parenchyma show no intracranial bleeds or mass effects. IMPRESSION: No evidence of cerebral venous thrombosis. Dictated by: Rand Gonsalez M.D. on 04/05/2017 at 15:30 Approved by: Rand Gonsalez M.D. on 04/05/2017 at 15:30
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
[2017-04-05 16:10] VITALS: BP 107/75; PULSE 101; RESP 16; O2SAT 98
--- NOTE | 2017-04-05 16:37 | DRSVH ---
PROCEDURE: MRI CERVICAL SPINE WITH AND WITHOUT CONTRAST ([id number]) INDICATIONS: r/o inflammation, infection , thrombosis TECHNIQUE: Noncontrast sagittal T1 spin echo and T2 fast spin echo, sagittal STIR, foraminal oblique sagittal T2 fast spin echo, axial gradient echo or T2 fast spin echo through the cervical spine. After the admi nistration of contrast, axial and sagittal T1 spin echo with fat saturation through the cervical spin e. COMPARISON: None. FINDINGS: Image quality: Excellent. Alignment and curvature: There is normal bony alignment. Marrow: Marrow is normal in overall signal, without suspicious enhancement. There is mild cervical diffuse disc desiccation without definite height loss. Spinal cord: Visualized spinal cord has normal size and signal. No cerebellar tonsillar herniation. No abnormal intramedullary enhancement. Paraspinous soft tissues: No paravertebral masses or suspicious enhancement. C2-3: Normal appearance. C3-4: Normal appearance. C4-5: Normal appearance. C5-6: Normal appearance. C6-7: Normal appearance. C7-T1: Normal appearance. IMPRESSION: No abnormal enhancement or cord signal change. No canal or foraminal stenosis. Dictated by: Tirso Maddox M.D. on 04/05/2017 at 16:33 Approved by: Tirso Maddox M.D. on 04/05/2017 at 16:36
--- NOTE | 2017-04-05 16:39 | DRSVH ---
PROCEDURE: MRI THORACIC SPINE WITH AND WITHOUT CONTRAST ([id number]) INDICATIONS: r/o inflammation, infection, thrombosis TECHNIQUE: Noncontrast sagittal T1 spin echo and T2 fast spin echo, sagittal STIR, axial T1 and T2 fast spin ech o through the thoracic spine. After the administration of contrast, axial and sagittal T1 spin echo with fat saturation through the thoracic spine. COMPARISON: None. FINDINGS: Image quality: Excellent. Alignment and curvature: There is normal bony alignment. Marrow: Marrow is of normal overall signal. No acute vertebral body compression fractures. Spinal cord: Visualized spinal cord is of normal signal and size, without abnormal enhancement. Paraspinous soft tissues: No paravertebral masses or abnormal enhancement. Miscellaneous: Central canal and foramina appear widely patent at all scanned levels. IMPRESSION: No abnormal enhancement or cord signal abnormality. Dictated by: Tirso Maddox M.D. on 04/05/2017 at 16:36 Approved by: Tirso Maddox M.D. on 04/05/2017 at 16:37
--- NOTE | 2017-04-05 16:48 | DRSVH ---
PROCEDURE: MRI LUMBAR SPINE WITH AND WITHOUT CONTRAST ([id number]) INDICATIONS: r/o inflammation, infection , thrombosis TECHNIQUE: Noncontrast sagittal T1 spin echo and T2 fast spin echo, sagittal STIR, axial T1 and T2 fast spin ech o through the lumbar spine. In cases with scoliosis, additional coronal T2 fast spin echo may be per formed. After the administration of contrast, sagittal and axial T1 spin echo with fat saturation th rough the lumbar spine. COMPARISON: None. FINDINGS: Image quality: Excellent. Alignment and curvature: There is normal bony alignment. Marrow: Marrow is of normal overall signal. No acute vertebral body compression fractures. No susp icious marrow enhancement. There is mild facet disease from L4-S1 Spinal cord: Conus medullaris terminates at the L1 level. Visualized spinal cord demonstrates khai l signal, without suspicious enhancement. Paraspinous soft tissues: No paravertebral masses or abnormal enhancement. Incidentally noted S2 lev el Tarlov cyst L1-L2: Normal appearance. L2-L3: Normal appearance. L3-L4: Normal appearance. L4-L5: Normal appearance. L5-S1: Posterior annular fissure and small central disc protrusion. Bilateral facet disease. No high- grade central canal stenosis. Minimal bilateral foraminal narrowing. IMPRESSION: No abnormal enhancement or cord signal change. L5-S1 small central disc protrusion, without high-grade central canal stenosis. No significant foraminal stenosis. Mild lower lumbar facet disease from L4-S1 Dictated by: Tirso Maddox M.D. on 04/05/2017 at 16:38 Approved by: Tirso Maddox M.D. on 04/05/2017 at 16:47
[2017-04-05] MEDS: PROMETHAZINE IV PRN (17:21)
[2017-04-05] MEDS: SODIUM CHLORIDE 0.9% IV PRN (17:21)
--- NOTE | 2017-04-05 17:22 | NUR ---
Vomiting/ambulation 5 min after administering PO Promethazine and Tramadol, pt seen to have vomited thick, slimy, fransisca cracker stuff. IV Promethazine administered. Pt not due for any pain medications at this time. Pt seen ambulating 1x to the bathroom, appeared hunched over, states it hurts too bad to raise her head. When administering PO meds this AM, pt refusing to sit up at that time, stating swallow and aspiration hasn't been an issue. Education provided and pt was seen to sit up before giving PO medications. VSS. will continue to monitor.
[2017-04-05 21:09] VITALS: BP 97/64; PULSE 83; RESP 18; O2SAT 97
[2017-04-05] MEDS: Lidocaine Topical 5% Patch TOPICAL SCH (22:54)
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
[2017-04-06] MEDS: SODIUM CHLORIDE 0.9% IV PRN (00:22)
[2017-04-06] MEDS: PROMETHAZINE IV PRN (00:22)
[2017-04-06] MEDS: Sodium Chloride LOK Flush 10 mL Syringe IVFLUSH SCH ×2 (00:37→08:33)
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
[2017-04-06 05:11] VITALS: BP 105/69; PULSE 76; RESP 20; O2SAT 100
--- NOTE | 2017-04-06 06:09 | NUR ---
nausea/pain/procedure: pt c/o to rate back pain 10/10. tramadol and [place] given, pt reports little relief. anesthesiologist in room at start of shift, and 2more times through out shift to discuss blood patch procedure, pt reportedly denied procedure. shortly after the third visit from ,anesthesiologist pt called RN to room to request him to return, that she did want to go through with the procedure. will relay message to dayshift. will continue to monitor pt
[2017-04-06] MEDS: Pantoprazole 40 mg ER24 Tablet PO SCH (08:33)
[2017-04-06] MEDS: Amoxicillin-Clav 875-125 mg Tablet PO SCH (08:33)
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
[2017-04-06] MEDS ORDERED: diphenhydrAMINE 50 mg Capsule PO PRN (10:15)
[2017-04-06] MEDS ORDERED: diphenhydrAMINE 25 mg Capsule PO PRN (10:17)
--- NOTE | 2017-04-06 11:25 | NUR ---
Patient wanted to know if she was getting a blood patch. Nurse explained the anesthesiologist that offered to give patient blood patch was no longer on duty and was unaware of someone else preforming the procedure. Patient then stated, "Well, I should just leave then". Nurse asked patient if she was going to be leaving against medical advise due to not having discharge orders. Patient stated she didn't want to leave AMA. Patient requested to speak with MD about discharge orders. MD was informed.
--- NOTE | 2017-04-06 14:44 | NUR ---
Shift Pt continues to state her pain is unrelieved despite all medications. Pt continues to lay flat and states she has "positional" headaches. Pt continues to say she has nausea, even with promethezine QID. Pt questions in regards to medications are very methodical in nature. Pt asking to leave and educated about leaving AMA. Provider was paged about patient wanting to leave, she states "If I am not going to get the blood patch, I may as well go home." Anesthesia offered and consulted pt x 3 last evening. Pt IV benadryl is dc/d and replaced with oral benadryl only. Pt requests meds be given IV, and again are methodical and specific. Observed undigested food from patient and requested IV promethezine from pharmacy. Provider in room with pt discussing plan of care. Pt is independent to restroom. Callight is at bedside.
[2017-04-06 15:34] VITALS: BP 114/75; PULSE 86; RESP 20; O2SAT 100
--- NOTE | 2017-04-06 15:44 | NUR ---
AMA Patient requested to leave AMA. Patient is aware of possible advise affects that could happen to her due to this choice. Patient signed AMA form. IV removed fully intact and asymptomatic. Medications received from pharmacy and given to patient. Addendum: 04/06/17 at 1633 by SUZI GALLEGOS RN Patient was assisted to main entrance by her request in wheelchair by [employer]. Patient mother was waiting for patient at main entrance in her car. Patient was offered help transferring into car by [employer] and patient refused help. Patient was able to walk from wheelchair to car independently without assistance.
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
== END 2017-04-06 16:12 | disposition left against medical advice (07) | DRG 103 ==
LOC: SED 12:42 → OBSVTOIN 18:48 → MPC 18:48
PROVIDERS: ADMIT Internal Medicine; ATTEND Internal Medicine
PROC: 009U3ZX Drainage of Spinal Canal, Percutaneous Approach, Diagnostic (ICD-10-PCS; principal; 2017-03-29)
DX: G43.909 Migraine, unspecified, not intractable, without status migrainosus (principal); F33.9 Major depressive disorder, recurrent, unspecified; G97.1 Other reaction to spinal and lumbar puncture; J32.9 Chronic sinusitis, unspecified; F43.10 Post-traumatic stress disorder, unspecified; G44.89 Other headache syndrome; D72.819 Decreased white blood cell count, unspecified; F51.04 Psychophysiologic insomnia; K21.9 Gastro-esophageal reflux disease without esophagitis; F90.9 Attention-deficit hyperactivity disorder, unspecified type; F41.9 Anxiety disorder, unspecified; X99.9XXD Assault by unspecified sharp object, subsequent encounter; Z88.8 Allergy status to other drugs, medicaments and biological substances; Z76.5 Malingerer [conscious simulation]

== ENCOUNTER 2017-04-30 01:54 | Emergency (ER) | payer OTHER ==
[2017-04-30] VITALS (9 sets, daily range): BP systolic 99–126; BP diastolic 57–83; PULSE 60–105; RESP 15–22; O2SAT 93–100
[~2017-04-30] VITALS: Ht 167.6 cm; Wt 62.3 kg
[~2017-04-30 01:54] MED LIST: ACET-171 PO; AMPH30CA5 PO; FAMO20TA4 PO; KLO1T PO; MAGN500C4 PO; OXYC-407 PO; PANT40TA3 PO; PROM25SU47 RECTAL; ZOLP5TAB6 PO
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
[2017-04-30] MEDS ORDERED: 0.9% Sodium Chloride 1,000 ML IV ONE (03:01)
[2017-04-30] MEDS ORDERED: Promethazine Inj 25 MG in 0.9% Sodium Chloride-Pha MIX 100 ML IV ONE ×2 (03:05→09:20)
[2017-04-30] MEDS: fentaNYL-PF 50 mCg/mL 2 mL Inj IVPUSH PRN ×5 (03:22→07:50)
[2017-04-30 03:27] LABS: BASOPHILS % (AUTO) 1.1 % (0-3); EOSINOPHILS % (AUTO) 0.7 % (0-5); MONOCYTES % (AUTO) 12.7 % (4-12); Mean Corpuscular Hemoglobin 24.3 pg (27.0-35.0); Mean Corpuscular Volume 78.4 fL (81-100); NEUTROPHILS % (AUTO) 41.1 % (40-74); Platelet Count 270 bil/L (150-400)
[2017-04-30 03:48] LABS: INR 0.92 ratio
[2017-04-30 03:57] LABS: ERYTHROCYTE SEDIMENTATION RATE 31 mm/hr (0-32)
[2017-04-30] MEDS ORDERED: Haloperidol 5 mg/mL Inj IVPUSH ONE (04:10)
[2017-04-30 07:49] LABS: APPEARANCE,URINE HAZY (CLEAR,HAZY); COLOR,URINE YELLOW (YELLOW); OCCULT BLOOD,URINE NEGATIVE (NEGATIVE); UROBILINOGEN,URINE NORMAL (NORMAL)
--- NOTE | 2017-04-30 09:36 | DRSVH ---
PROCEDURE: MRI LUMBAR SPINE WITHOUT CONTRAST ([id number]) INDICATIONS: spinal headache, blood patchx2, legs weak, low back pain TECHNIQUE: Noncontrast sagittal T1 spin echo and T2 fast echo, sagittal STIR, axial T1 and T2 fast spin echo thr ough the lumbar spine. In cases with scoliosis, additional coronal T2 fast spin echo may be performe d. COMPARISON: [facility], MR, MR THORACIC SPINE W&WO CON, 04/05/2017, 14:57. [facility], MR, MR LUMBAR SPINE W&WO CON, 04/05/2017, 14:57. FINDINGS: Image quality: Excellent. Alignment and Curvature: There is normal bony alignment. Bone Marrow: Marrow is of normal overall signal. No acute vertebral body compression fractures. Spinal Cord: Conus medullaris terminates at the L1-L2 level. Visualized cord demonstrates normal si gnal and size. Paraspinous Soft Tissues: No paravertebral masses. L1-L2: The minimal loss of disc height and disc desiccation. There is circumferential disc bulge. T he central canal is patent. No foraminal stenosis. L2-L3: Normal appearance. L3-L4: Normal appearance. L4-L5: Normal appearance. L5-S1: Mild loss of disc height and disc desiccation. There is mild posterior disc bulge and posteri or central disc protrusion. The central canal is patent. No foraminal stenosis. There are perineural cysts (Tarlov cysts) at S2, measuring 2.1 cm on the right and 0.8 cm on the left , unchanged from the last exam. IMPRESSION: 1. Multilevel degenerative disc disease and facet arthropathy as described. 2. No central canal stenosis. 3. No foraminal stenosis. 4. Tarlov cysts at the S2 level. Dictated by: Camilla Zapata M.D. on 04/30/2017 at 9:26 Transcribed by: GENEVA on 04/30/2017 at 9:35 Approved by: Camilla Zapata M.D. on 04/30/2017 at 23:02
[2017-04-30] MEDS ORDERED: Dexamethasone Inj 10 MG in 0.9% Sodium Chloride-Pha MIX 50 ML IV ONE (10:55)
== END 2017-04-30 15:34 | disposition home or self-care (01) ==
LOC: SED 01:54
DX: G97.1 Other reaction to spinal and lumbar puncture (principal); M54.5 Low back pain; D72.819 Decreased white blood cell count, unspecified; M62.81 Muscle weakness (generalized); F43.10 Post-traumatic stress disorder, unspecified; F60.89 Other specific personality disorders; R20.2 Paresthesia of skin; R50.9 Fever, unspecified; Z88.5 Allergy status to narcotic agent; Z88.8 Allergy status to other drugs, medicaments and biological substances
CPT/HCPCS: 36415; 72148; 80053; 81000; 83605; 85025; 85610; 85651; 85730; 87040; 87086; 87088; 90791; 96361; 96374; 96375; 96376; 99285; J1100; J1200; J1630; J2550; J3010; J7030

== ENCOUNTER 2017-05-10 02:53 | Emergency (ER) | payer OTHER ==
[2017-05-10 02:55] VITALS: BP 119/87; PULSE 110; RESP 16; O2SAT 99
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
[2017-05-10] MEDS ORDERED: Promethazine Inj 25 MG in Dextrose 5%-Pha MIX 50 ML IV ONE (05:50)
[2017-05-10] MEDS ORDERED: 0.9% Sodium Chloride 1,000 ML IV ONE (05:50)
[2017-05-10 06:36] LABS: BASOPHILS % (AUTO) 0.3 % (0-3); EOSINOPHILS % (AUTO) 0.3 % (0-5); MONOCYTES % (AUTO) 7.8 % (4-12); Mean Corpuscular Hemoglobin 24.5 pg (27.0-35.0); Mean Corpuscular Volume 77.8 fL (81-100); NEUTROPHILS % (AUTO) 51.8 % (40-74); Platelet Count 276 bil/L (150-400)
[2017-05-10 06:44] LABS: Magnesium 1.8 mg/dL (1.6-2.6)
[2017-05-10] MEDS ORDERED: fentaNYL-PF 50 mCg/mL 2 mL Inj IVPUSH ONE (07:50)
[2017-05-10 08:03] VITALS: BP 122/76; PULSE 75; RESP 9; O2SAT 100
[2017-05-10 08:44] VITALS: BP 133/77; PULSE 79; O2SAT 100
[2017-05-10] MEDS ORDERED: PROM12.510 PO (09:10)
[2017-05-10] MEDS ORDERED: HYDR-3740 PO (09:10)
[2017-05-10] MEDS ORDERED: HYDROcodone-APAP 10-325 mg PO ONE (09:15)
[2017-05-10 09:36] VITALS: BP 118/72; PULSE 75; O2SAT 100
[2017-05-10] MEDS ORDERED: GABA-502 PO (10:12)
[2017-05-10] MEDS ORDERED: PROM25SU46 RC (10:12)
[2017-05-10 10:42] VITALS: BP 131/85; PULSE 73
== END 2017-05-10 10:30 | disposition home or self-care (01) ==
LOC: SED 02:53
DX: M54.5 Low back pain (principal); K22.6 Gastro-esophageal laceration-hemorrhage syndrome; K21.9 Gastro-esophageal reflux disease without esophagitis; F41.8 Other specified anxiety disorders; Z88.5 Allergy status to narcotic agent; Z88.8 Allergy status to other drugs, medicaments and biological substances
CPT/HCPCS: 36415; 80053; 83735; 85025; 90791; 96361; 96374; 96375; 99284; J1200; J2250; J2550; J3010; J7030

== ENCOUNTER 2017-05-24 15:50 | Emergency (ER) | payer OTHER ==
[~2017-05-24] VITALS: Ht 167.6 cm; Wt 67.7 kg
[~2017-05-24 15:50] MED LIST changes: +GABA-502 PO; +HYDR-3740 PO; +PROM12.510 PO; +PROM25SU46 RC
[2017-05-24 15:53] VITALS: BP 125/83; PULSE 100; RESP 18; O2SAT 99
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
[2017-05-24] MEDS ORDERED: Magnesium Sulf 2 Gm/50mL Water 2 GM in IV Premix 1 EACH IV ONE (17:40)
[2017-05-24] MEDS ORDERED: Promethazine Inj 12.5 MG in Dextrose 5%-Pha MIX 50 ML IV ONE (17:40)
[2017-05-24] MEDS ORDERED: 0.9% Sodium Chloride 1,000 ML IV ONE (20:25)
[2017-05-24 20:30] VITALS: BP 133/74; PULSE 87; RESP 18; O2SAT 96
[2017-05-24] MEDS ORDERED: PROM25SU46 RC (21:56)
[2017-05-24 22:04] VITALS: BP 133/76; PULSE 87; O2SAT 100
== END 2017-05-24 22:10 | disposition home or self-care (01) ==
LOC: SED 15:50
DX: R51 Headache (principal); M54.9 Dorsalgia, unspecified; G89.29 Other chronic pain; R11.2 Nausea with vomiting, unspecified; K21.9 Gastro-esophageal reflux disease without esophagitis; Z88.6 Allergy status to analgesic agent; Z88.5 Allergy status to narcotic agent; Z88.8 Allergy status to other drugs, medicaments and biological substances; R20.2 Paresthesia of skin
CPT/HCPCS: 81002; 81025; 96361; 96374; 96375; 99284; J2550; J7030